=== PATIENT | female | born 1960 | race Caucasian/White ===

== ENCOUNTER → 2016-10-14 | Outpatient (CLI) | payer BC ==
[~2016-10-14] MED LIST: CLARITIN10 M3 PO; FIBERCON625 MG PO; HYDROCHLOROTH12.5 MG PO; LEVOTHROID100 MC1 PO; LEVOTHYROXINE100 MCG PO; LISINOPRIL-HCTZ1 T20 PO; LORATADINE PO; LORAZEPAM1 MG PO; MIRALAX17 G2 PO; MOBIC15 MG PO; NAPROSYN-EC500 M1 DOB; SENOKOT S1 TA1 PO; ZESTRIL10 M1 PO; ZOCOR PO; ZOCOR20 MG PO
--- NOTE | ~2016-10-14 | MY11 ---
[facility] A Service [facility] RADIOLOGY TEXT RESULTS PATIENT: CHARU RIVAS LOCATION: [facility] : 62 UNIT #: [id number] AGE: [address]: Serg Brown MD SEX: F ORDER DR: [id number] [facility] [address] [place], [place] [address] [id number] O MR#: [id number] Acc #: [id number] NAME: CHARU RIVAS. : 1960 SEX: F STUDY DATE/TIME: 10/14/2016 10:05 UNIT: [facility] ROOM: STUDY DESCRIPTION: MY Mammogram Screening Dig Edgardo Attending Physician: Serg Brown M.D. Referring Physician: Serg Brown M.D. Ordering Physician: Serg Brown M.D. Primary Care Physician: Chan Zheng M.D. MEDICAL IMAGING REPORT This report is preliminary unless electronic signature is present EXAM Digital screening mammogram, 10/14/2016 HISTORY 55-year-old woman no risk elevation. Annual screening. COMPARISON Mammograms date to 05/15/2009 with most recent screening 08/19/2012. Followup diagnostic right breast evaluation 09/07/2012. FINDINGS Digital imaging of each breast was completed utilizing a two-view examination of each breast in craniocaudal and mediolateral-oblique projections. Review and interpretation of digital mammograms include a second review in conjunction with FDA-approved CAD device. There is a normal parenchymal presentation bilaterally consistent with the patient's age. There are no breast masses imaged and no parenchymal asymmetry is visualized. There are no suspicious microcalcifications and I see no focal architectural disturbance. IMPRESSION Negative screening digital mammogram. One-year followup recommended. Patients over the age of 40 are entered into a reminder system with target due date for the next mammogram. A result letter will also be sent to the patient. BIRADS: 1 Negative ADDENDUM Small intramammary lymph node upper right breast unchanged. Dictated by... [facility] Service [facility] RADIOLOGY TEXT RESULTS PATIENT: CHARU RIVAS LOCATION: [facility] : 62 UNIT #: [id number] AGE: [address]: Serg Brown MD SEX: F ORDER DR: Noé Buchanan M.D. THIS IS AN ELECTRONICALLY VERIFIED REPORT Noé Buchanan M.D. at 10/14/2016 1:23 PM Yuliana TD: 10/14/2016 13:03 JOB #: [id number] MEDICAL IMAGING REPORT Page 1 of 1 COPY
== END | disposition home or self-care (01) ==
LOC: CWCC 09:35
DX: Z12.31 Encounter for screening mammogram for malignant neoplasm of breast (principal)
CPT/HCPCS: G0202